=== PATIENT | male | born 1950 | race Caucasian/White ===

== ENCOUNTER → 2016-08-29 | Outpatient (CLI) | payer OTHER ==
[~2016-08-29] VITALS: Ht 180.3 cm; Wt 146.5 kg
[~2016-08-29] MED LIST: AMARYL2 MG PO; ASPIR 8181 MG PO; CALCIUM 600 +1 EAC1 PO; CARDIZEM CD180 MG PO; COREG6.25 MG PO; CYMBALTA30 MG PO; ENOXAPARIN30 MG/0.1 PO; KEFLEX250 MG PO; LEVEMIR SQ; MICONAZOLE5 GM TOP; MIRALAX17 GM PO; NOVOLOG100 UNIT/1 SQ; PROBIOTIC1 EAC1 PO; SILVADENE20 GM TOP; VITAMIN D 5050000 I1 PO
[2016-08-29 08:46] VITALS: BP 146/54
[2016-08-29 09:16] LABS: HEMATOCRIT 27.4 % (42.0-52.0); HEMOGLOBIN 9.1 gm/dL (14.0-18.0); MCHC 33.4 g/dL (28.0-37.0); MCV 86.6 fL (80.0-100.0); RBC 3.16 mil/uL (4.50-6.00); RDW 18.2 % (10.5-14.5); WBC 5.5 thou/uL (4.0-11.0)
[2016-08-29 09:29] LABS: APTT 28.7 Seconds (24.5-32.8); PROTIME 10.8 Seconds (9.3-11.4)
== END ==
LOC: SPEC 08:43
PROVIDERS: Hospitalist
DX: Z45.2 Encounter for adjustment and management of vascular access device (principal); E11.9 Type 2 diabetes mellitus without complications; G47.30 Sleep apnea, unspecified; I48.91 Unspecified atrial fibrillation; E78.00 Pure hypercholesterolemia, unspecified; Z90.5 Acquired absence of kidney; I10 Essential (primary) hypertension; E78.4 Other hyperlipidemia; E66.9 Obesity, unspecified

== ENCOUNTER → 2016-09-16 | Outpatient (CLI) | payer OTHER | END | disposition home or self-care (01) | LOC: SPEC 07:59 | DX: Z45.2 Encounter for adjustment and management of vascular access device (principal) ==